=== PATIENT | female | born 1985 | race American Indian/Alaskan Native ===

== ENCOUNTER 2019-01-23 10:36 | Emergency (ER) | payer MEDICAID ==
[2019-01-23] MEDS ORDERED: Ondansetron 4 MG/2 ML SDV IVPUSH ONE ×2 (11:02→11:10)
[2019-01-23] MEDS ORDERED: Sodium Chloride 0.9% 1,000 ML IV ONE (11:02)
[2019-01-23] MEDS ORDERED: Phenazopyridine 200 MG Tab PO ONE (11:06)
[2019-01-23] MEDS ORDERED: Ketorolac 30 MG/ML SDV IVPUSH ONE (11:07)
--- NOTE | 2019-01-23 11:10 | EDM.PDOC ---
ED HPI GENERAL MEDICAL PROBLEM - General Chief Complaint: Genitourinary Problem Stated Complaint: BLACK URINE Time Seen by Provider: 01/23/19 10:40 Source of Information: Reports: Patient History Limitations: Reports: Other (Patient is a poor historian) - History of Present Illness INITIAL COMMENTS - FREE TEXT/NARRATIVE: HISTORY AND PHYSICAL: History of present illness: Patient is a 33-year-old female presents to the ED today with concern of dark colored urine over the past 3-4 days. Patient states it does burn when she urinates and she feels as if her kidney is "contract "while she is urinating. Patient states she has 10 out of 10 generalized abdominal pain and feels as if she has had fevers and chills at home but has not checked a temp. Patient states she is also felt nauseous but has not vomited. Patient states she's had a history of urinary tract infections in the past but has never had anything similar to her symptoms today. Patient denies chest pain, shortness of breath, or cough. Denies headache, neck stiff ness, change in vision, syncope, or near syncope. Denies vomiting, diarrhea, constipation. Has not noted any blood in stool. Review of systems: As per history of present illness and below otherwise all systems reviewed and negative. Past medical history: As per history of present illness and as reviewed below otherwise noncontributory. Surgical history: As per history of present illness and as reviewed below otherwise noncontributory. Social history: See social history for further information Family history: As per history of present illness and as reviewed below otherwise noncontributory. Physical exam: General: Patient is alert, oriented, and in no acute distress. Patient sitting comfortably on exam table. HEENT: Atraumatic, normocephalic, pupils equal and reactive bilaterally, negative for conjunctival pallor or scleral icterus, mucous membranes dry, TMs normal bilaterally, throat clear, neck supple, nontender, trachea midline. No drooling or trismus noted. No meningeal signs. No hot potato voice noted. Lungs: Clear to auscultation, breath sounds equal bilaterally, chest nontender. Heart: S1S2, regular rate and rhythm without overt murmur Abdomen: Soft, nondistended. Severe pain to palpation of the generalized abdomen with guarding. Negative for masses or hepatosplenomegaly. Positive for costovertebral tenderness. Pelvis: Stable nontender. Genitourinary: Deferred. Rectal: Deferred. Skin: Intact, warm, dry. No lesions or rashes noted. Extremities: Atraumatic, negative for cords or calf pain. Neurovascular unremarkable. Neuro: Awake, alert, oriented. Cranial nerves II through XII unremarkable. Cerebellum unremarkable. Motor and sensory unremarkable throughout. Exam nonfocal. Notes: On initial exam, patient did not inform me that she already has a stent placed in her kidney. When asking the patient about staying and when it was placed, patient gives multiple answers and multiple timeframes. Patient states also multiple timeframes as to when the stent supposed to be removed. Patient states the stent was placed in [facility]. Records were obtained from [facility] and it appears that the stent was placed then on 01/17/19. Dr. Maza, urology production wood craftsman, was consulted on patient for treatment and disposition. Per his recommendation, patient is to take Cipro 500 twice a day for 3 days, a prescription for [place] pain medication, and to follow-up with him on Friday to get the stent removed. Voices understanding and is agreeable to plan of care. Denies any further questions or concerns at this time. Diagnostics: CBC, CMP, UA, urine hCG, lipase, acetaminophen, saline cyclic, abd/pelvic CT, lactate, blood cultures x2, UDS, ethanol Therapeutics: Pyridium, Toradol, saline, Zofran, Rocephin, Morphine Prescription: Cipro, [place] #10 Impression: Acute pyelonephritis / cystitis with hydronephrosis s/p ureteral stent Dehydration Plan: 1. You are to go to Dr. Maza's office on Friday to get the stent removed. Take medications as prescribed. 2. Follow-up with urology as discussed. Return to the ED as needed and as discussed. Definitive disposition and diagnosis as appropriate pending reevaluation and review of above. back Pain Score (Numeric/FACES): 10 - Related Data Allergies Allergy/AdvReac Type Severity Reaction Status Date / Time No Known Allergies Allergy Verified 01/23/19 11:06 Home Meds: Home Meds . [No Known Home Meds] 01/23/19 [History] ED ROS GENERAL - Review of Systems Review Of Systems: ROS reveals no pertinent complaints other than HPI. ED EXAM, RENAL/ - Physical Exam Exam: See Below (See dictation) Course - Vital Signs Last Recorded V/S: Last Vital Signs Temp Pulse 58 L 01/23/19 12:37 Resp 18 01/23/19 12:37 BP 138/72 01/23/19 13:35 Pulse Ox 100 01/23/19 12:37 - Orders/Labs/Meds Orders: Active Orders 24 hr Category Date Time Status Notify Provider Consults [RC] ASDIRECTED Care 01/23/19 13:39 Ordered Consult to Physician [CONS] Stat Cons 01/23/19 13:38 Ordered CULTURE BLOOD [BC] Stat Lab 01/23/19 11:50 Received CULTURE BLOOD [BC] Stat Lab 01/23/19 11:54 Received CULTURE URINE [RM] Stat Lab 01/23/19 10:54 Received DRUG SCREEN, URINE [URCHEM] Stat Lab 01/23/19 10:54 Received Blood Culture x2 Reflex Set [OM.PC] Stat Oth 01/23/19 11:33 Ordered Labs: Laboratory Tests 01/23/19 01/23/19 01/23/19 Range/Units 10:54 11:03 11:20 WBC 7.22 (4.0-11.0) K/uL RBC 4.73 (4.30-5.90) M/uL Hgb 9.3 L (12.0-16.0) g/dL Hct 31.8 L (36.0-46.0) % MCV 67.2 L (80.0-98.0) fL MCH 19.7 L (27.0-32.0) pg MCHC 29.2 L (31.0-37.0) g/dL RDW Std Deviation 56.9 (28.0-62.0) fl RDW Coeff of Aj 24 H (11.0-15.0) % Plt Count 183 (150-400) K/uL MPV 8.80 (7.40-12.00) fL Neut % (Auto) 55.0 (48.0-80.0) % Lymph % (Auto) 28.0 (16.0-40.0) % Russell % (Auto) 14.8 (0.0-15.0) % Eos % (Auto) 1.4 (0.0-7.0) % Baso % (Auto) 0.8 (0.0-1.5) % Neut # (Auto) 4.0 (1.4-5.7) K/uL Lymph # (Auto) 2.0 (0.6-2.4) K/uL Russell # (Auto) 1.1 H (0.0-0.8) K/uL Eos # (Auto) 0.1 (0.0-0.7) K/uL Baso # (Auto) 0.1 (0.0-0.1) K/uL Nucleated RBC % 0.0 /100WBC Nucleated RBCs # 0 K/uL Lactate (0.20-2.00) mmol/L Sodium (136-145) mmol/L Potassium (3.5-5.1) mmol/L Chloride (98-107) mmol/L Carbon Dioxide (21.0-32.0) mmol/L BUN (7.0-18.0) mg/dL Creatinine (0.6-1.0) mg/dL Est Cr Clr Drug Dosing mL/min Estimated GFR (MDRD) ml/min Glucose (74-106) mg/dL Calcium (8.5-10.1) mg/dL Total Bilirubin (0.2-1.0) mg/dL AST (15-37) IU/L ALT (14-63) IU/L Alkaline Phosphatase (46-116) U/L Total Protein (6.4-8.2) g/dL Albumin (3.4-5.0) g/dL Globulin (2.6-4.0) g/dL Albumin/Globulin Ratio (0.9-1.6) Lipase (73-393) U/L Urine Color BROWN Urine Appearance CLOUDY Urine pH 7.0 (5.0-8.0) Ur Specific [place] 1.010 (1.001-1.035) Urine Protein >=300 H (NEGATIVE) mg/dL Urine Glucose (UA) 100 H (NEGATIVE) mg/dL Urine Ketones 40 H (NEGATIVE) mg/dL Urine Occult Blood LARGE H (NEGATIVE) Urine Nitrite POSITIVE H (NEGATIVE) Urine Bilirubin LARGE H (NEGATIVE) Urine Ictotest NEGATIVE Urine Urobilinogen >=8.0 H (<2.0) EU/dL Ur Leukocyte Esterase MODERATE H (NEGATIVE) Urine RBC TOO NUMEROUS TO CT H (0-2/HPF) Urine WBC 4-6 (0-5/HPF) Ur Epithelial Cells FEW (NONE-FEW) Urine Bacteria 1+ H (NEGATIVE) Urine Mucus FEW (NONE-MOD) Urine HCG, Qual NEGATIVE (NEGATIVE) Salicylates (0-20) mg/dL Acetaminophen ug/mL Ethyl Alcohol mg/dL 01/23/19 01/23/19 01/23/19 Range/Units 11:20 11:20 11:50 WBC (4.0-11.0) K/uL RBC (4.30-5.90) M/uL Hgb (12.0-16.0) g/dL Hct (36.0-46.0) % MCV (80.0-98.0) fL MCH (27.0-32.0) pg MCHC (31.0-37.0) g/dL RDW Std Deviation (28.0-62.0) fl RDW Coeff of Aj (11.0-15.0) % Plt Count (150-400) K/uL MPV (7.40-12.00) fL Neut % (Auto) (48.0-80.0) % Lymph % (Auto) (16.0-40.0) % Russell % (Auto) (0.0-15.0) % Eos % (Auto) (0.0-7.0) % Baso % (Auto) (0.0-1.5) % Neut # (Auto) (1.4-5.7) K/uL Lymph # (Auto) (0.6-2.4) K/uL Russell # (Auto) (0.0-0.8) K/uL Eos # (Auto) (0.0-0.7) K/uL Baso # (Auto) (0.0-0.1) K/uL Nucleated RBC % /100WBC Nucleated RBCs # K/uL Lactate 0.6 (0.20-2.00) mmol/L Sodium 140 (136-145) mmol/L Potassium 3.1 L (3.5-5.1) mmol/L Chloride 107 (98-107) mmol/L Carbon Dioxide 25.0 (21.0-32.0) mmol/L BUN 21 H (7.0-18.0) mg/dL Creatinine 0.6 (0.6-1.0) mg/dL Est Cr Clr Drug Dosing 111.35 mL/min Estimated GFR (MDRD) > 60.0 ml/min Glucose 99 (74-106) mg/dL Calcium 8.3 L (8.5-10.1) mg/dL Total Bilirubin 3.6 H (0.2-1.0) mg/dL AST 72 H (15-37) IU/L ALT 77 H (14-63) IU/L Alkaline Phosphatase 131 H (46-116) U/L Total Protein 6.9 (6.4-8.2) g/dL Albumin 3.4 (3.4-5.0) g/dL Globulin 3.5 (2.6-4.0) g/dL Albumin/Globulin Ratio 1.0 (0.9-1.6) Lipase 126 (73-393) U/L Urine Color Urine Appearance Urine pH (5.0-8.0) Ur Specific [place] (1.001-1.035) Urine Protein (NEGATIVE) mg/dL Urine Glucose (UA) (NEGATIVE) mg/dL Urine Ketones (NEGATIVE) mg/dL Urine Occult Blood (NEGATIVE) Urine Nitrite (NEGATIVE) Urine Bilirubin (NEGATIVE) Urine Ictotest Urine Urobilinogen (<2.0) EU/dL Ur Leukocyte Esterase (NEGATIVE) Urine RBC (0-2/HPF) Urine WBC (0-5/HPF) Ur Epithelial Cells (NONE-FEW) Urine Bacteria (NEGATIVE) Urine Mucus (NONE-MOD) Urine HCG, Qual (NEGATIVE) Salicylates < 2.0 (0-20) mg/dL Acetaminophen <2.0 ug/mL Ethyl Alcohol <3 mg/dL Meds: Medications Discontinued Medications Generic Name Dose Route Start Last Admin Trade Name Freq PRN Reason Stop Dose Admin Sodium Chloride 1,000 mls @ 999 mls/hr 01/23/19 11:02 01/23/19 11:19 Normal Saline IV 01/23/19 12:02 999 mls/hr BOLUS ONE Administration Ceftriaxone Sodium/Dextrose 1 50 mls @ 100 mls/hr 01/23/19 11:33 01/23/19 12: 10 gm/ Premix IV 01/23/19 12:02 100 mls/hr ONETIME ONE Administration Ketorolac Tromethamine 30 mg 01/23/19 11:07 01/23/19 11:19 Toradol IVPUSH 01/23/19 11:08 30 mg ONETIME ONE Administration Morphine Sulfate 2 mg 01/23/19 12:20 01/23/19 12:28 Morphine IVPUSH 01/23/19 12:21 2 mg ONETIME ONE Administration Ondansetron HCl 4 mg 01/23/19 11:02 01/23/19 11:19 Zofran IVPUSH 01/23/19 11:03 4 mg ONETIME ONE Administration Ondansetron HCl 4 mg 01/23/19 11:10 01/23/19 11:25 Zofran IVPUSH 01/23/19 11:11 Not Given ONETIME ONE Phenazopyridine HCl 200 mg 01/23/19 11:06 01/23/19 11:19 Pyridium PO 01/23/19 11:07 200 mg ONETIME ONE Administration Departure - Departure Time of Disposition: 13:43 Disposition: Home, Self-Care 01 Clinical Impression: Acute pyelonephritis, S/P ureteral stent placement, Dehydration Acute cystitis Qualifiers: Hematuria presence: with hematuria Qualified Code(s): N30.01 - Acute cystitis with hematuria Hydronephrosis Qualifiers: Hydronephrosis type: unspecified Qualified Code(s): N13.30 - Unspecified hydronephrosis - Discharge Information Referrals: PCP,None [Primary Care Provider] - Caridad Martinez MD [Physician] - Forms: ED Department Discharge Additional Instructions: The following information is given to patients seen in the emergency department who are being discharged to home. This information is to outline your options for follow-up care. We provide all patients seen in our emergency department with a follow-up referral. The need for follow-up, as well as the timing and circumstances, are variable depending upon the specifics of your emergency department visit. If you don't have a primary care physician on staff, we will provide you with a referral. We always advise you to contact your personal physician following an emergency department visit to inform them of the circumstance of the visit and for follow-up with them and/or the need for any referrals to a consulting specialist. The emergency department will also refer you to a specialist when appropriate. This referral assures that you have the opportunity for follow-up care with a specialist. All of these measure are taken in an effort to provide you with optimal care, which includes your follow-up. Under all circumstances we always encourage you to contact your private physician who remains a resource for coordinating your care. When calling for follow-up care, please make the office aware that this follow-up is from your recent emergency room visit. If for any reason you are refused follow-up, please contact the [facility] Emergency Department at and asked to speak to the emergency department charge nurse. [facility] [address] [place], [place] [id number] [facility] [address] [place] [id number] [facility] - Urology [address] [place] [id number] 1. You are to go to Dr. Maza's office on Friday to get the stent removed. Take medications as prescribed. 2. Follow-up with urology as discussed. Return to the ED as needed and as discussed. - My Orders Last 24 Hours: My Active Orders 01/23/19 10:54 CULTURE URINE [RM] Stat DRUG SCREEN, URINE [URCHEM] Stat 01/23/19 11:33 Blood Culture x2 Reflex Set [OM.PC] Stat 01/23/19 11:50 CULTURE BLOOD [BC] Stat 01/23/19 11:54 CULTURE BLOOD [BC] Stat 01/23/19 13:38 Consult to Physician [CONS] Stat 01/23/19 13:39 Notify Provider Consults [RC] ASDIRECTED - Assessment/Plan Last 24 Hours: My Active Orders 01/23/19 10:54 CULTURE URINE [RM] Stat DRUG SCREEN, URINE [URCHEM] Stat 01/23/19 11:33 Blood Culture x2 Reflex Set [OM.PC] Stat 01/23/19 11:50 CULTURE BLOOD [BC] Stat 01/23/19 11:54 CULTURE BLOOD [BC] Stat 01/23/19 13:38 Consult to Physician [CONS] Stat 01/23/19 13:39 Notify Provider Consults [RC] ASDIRECTED
[2019-01-23] MEDS ORDERED: cefTRIAXone 1 GM in Premix Bag 1 BAG IV ONE (11:33)
[2019-01-23 11:51] LABS: CHLORIDE,CL 107 mmol/L (98-107); SODIUM,NA 140 mmol/L (136-145)
[2019-01-23 12:03] LABS: ACETAMINOPHEN <2.0 ug/mL
[2019-01-23] MEDS ORDERED: Morphine 2 MG/ML Syringe IVPUSH ONE (12:20)
--- NOTE | 2019-01-23 12:38 | CT ---
INDICATION: Blood in urine. Abdominal pain. History of stones and stone removal. TECHNIQUE: Volumetric unenhanced CT acquisition of the abdomen and pelvis with multiplanar reconstruction. FINDINGS: The lung bases are clear. The unenhanced liver, spleen, pancreas, adrenal glands, and biliary tract are unremarkable. The gallbladder is surgically absent. A right ureteral stent is in place. The proximal pole of the stent is in the right renal pelvis. The distal stent is in the urinary bladder. Mild right-sided hydronephrosis. Subtle inflammatory change adjacent to proximal right ureter. No left-sided hydronephrosis. No urinary tract stones. The urinary bladder has a smooth contour. Abdominal aorta normal in caliber. No para-aortic or retrocrural lymphadenopathy. Normal bowel gas pattern. No inflammatory changes involving the bowel. Normal appendix. The uterus is present. No free fluid in the abdomen and pelvis. No acute bony abnormality. IMPRESSION: 1. Right ureteral stent as described above. Mild right-sided hydronephrosis with subtle inflammatory change in the fat adjacent to in the proximal right ureter. 2. No urinary tract stones. 3. The gallbladder is surgically absent. Please note that all CT scans at this facility use dose modulation, iterative reconstruction, and/or weight-based dosing when appropriate to reduce radiation dose to as low as reasonably achievable. Dictated by Nina Alexander MD @ Jan 23 2019 12:29PM Signed by Dr. Nina Alexander @ Jan 23 2019 12:35PM
== END 2019-01-23 13:40 | disposition home or self-care (01) ==
LOC: MW.ED 10:36
DX: N10 Acute pyelonephritis (principal); E86.0 Dehydration; N30.01 Acute cystitis with hematuria; N13.30 Unspecified hydronephrosis; Z96.0 Presence of urogenital implants
CPT/HCPCS: 36415; 74176; 80053; 80305; 81001; 81025; 83605; 83690; 85025; 87040; 87086; 87088; 87186; 96361; 96365; 96375; 99284; A4217; A9270; G0480; J0696; J1885; J2270; J2405; J7040